=== PATIENT | male | born 1995 | race Asian ===

== ENCOUNTER 2022-04-02 11:33 | Emergency (ER) | payer SELFPAY ==
[2022-04-02 12:02] VITALS: BP 120/73
== END 2022-04-03 08:42 | disposition left against medical advice (07) ==
LOC: ED 11:33
DX: Z04.1 Encounter for examination and observation following transport accident (principal); Z53.21 Procedure and treatment not carried out due to patient leaving prior to being seen by health care provider; V49.9XXA Car occupant (driver) (passenger) injured in unspecified traffic accident, initial encounter; Y93.89 Activity, other specified; Y92.89 Other specified places as the place of occurrence of the external cause; Y99.8 Other external cause status